=== PATIENT | female | born 1930 | race Caucasian/White ===

== ENCOUNTER → 2016-08-16 | Outpatient (CLI) | payer BC ==
[~2016-08-16] MED LIST: BIMA0.01 OPB; CALCTAB13 PO; CHOL100027 PO; CYCL0.052 OP; ESOM1CAP34 PO; FLX5 PO; GUAISYP4 PO; LDDP5 TD; LPT/20 PO; NRV/5 PO; POLY335040 PO; PRED10TA PO; TMPOPS15 OPB; TRAM-10 PO; TYL325X PO; ZTHM250 PO
[2016-08-16 13:31] LABS: BASO % 0.7 %; BASO ABS # 0.04 K/uL (0-0.2); COMPLETE YES; EOS % 2.4 %; HEMATOCRIT 40.9 % (37-47); LYMPH % 32.4 %; LYMPH ABS # 1.76 K/uL (1.2-3.4); MEAN CELL VOLUME 91.7 fL (80-100); MEAN CORPUSCULAR HEMOGLOBIN 30.7 pg (25-34); MEAN CORPUSCULAR HGB CONC 33.5 g/dl (32-36); MONO % 10.1 %; NEUT % 54.4 %; PLATELET COUNT 187 K/uL (130-400); RED BLOOD COUNT 4.46 M/uL (4.2-5.4); WHITE BLOOD COUNT 5.44 K/uL (4.8-10.8)
[2016-08-16 13:47] LABS: BLOOD UREA NITROGEN 15 mg/dl (7-18); BUN/CREATININE RATIO 19.6 (10-20); CALCIUM 8.7 mg/dl (8.5-10.1); CARBON DIOXIDE 31 mmol/L (21-32); CHLORIDE 106 mmol/L (98-107); CREATININE 0.78 mg/dl (0.60-1.20); GLUCOSE 86 mg/dl (70-99); POTASSIUM 3.8 mmol/L (3.5-5.1); SODIUM 143 mmol/L (136-145)
== END | disposition home or self-care (01) ==
LOC: C.LAB 12:06
PROVIDERS: ATTEND Internal Medicine Geriatric Medicine
DX: I10 Essential (primary) hypertension (principal); M19.90 Unspecified osteoarthritis, unspecified site; M81.0 Age-related osteoporosis without current pathological fracture; M48.00 Spinal stenosis, site unspecified

== ENCOUNTER → 2016-09-24 | Outpatient (CLI) | payer BC ==
[2016-09-24 17:06] LABS: BLOOD UREA NITROGEN 23 mg/dl (7-18); BUN/CREATININE RATIO 19.3 (10-20); CALCIUM 8.8 mg/dl (8.5-10.1); CARBON DIOXIDE 34 mmol/L (21-32); CHLORIDE 104 mmol/L (98-107); GLUCOSE 110 mg/dl (70-99); SODIUM 143 mmol/L (136-145)
== END | disposition home or self-care (01) ==
LOC: C.LAB 15:25
PROVIDERS: ATTEND Internal Medicine Geriatric Medicine
DX: I10 Essential (primary) hypertension (principal)

== ENCOUNTER 2016-10-25 08:57 | Inpatient (IN) | payer BC, OTHER ==
[~2016-10-25] VITALS: Ht 142.2 cm; Wt 67.1 kg
[~2016-10-25 08:57] MED LIST changes: +AZIT-57 PO; -CYCL0.052 OP; -FLX5 PO; -LDDP5 TD; -PRED10TA PO; -TYL325X PO; -ZTHM250 PO
--- NOTE | 2016-10-25 09:28 | EMERGENCY ROOM VISIT NOTE ---
History Report prepared by Kaylyn: Eli Atkinson Under the Supervision of: Dr. Viet Queen M.D. First contact with patient: 09:16 Chief Complaint: NECK PAIN Stated Complaint: NECK PAIN ALL AROUND History of Present Illness The patient is a 86 year old female who presents to the Emergency Room with complaints of worsening neck pain that began 3 days ago. The pain is located on both sides of her neck and the back of her neck. It is significantly worse with movement of her neck. Her discomfort is a 10/10 in severity. She feels that she may have slept in an unusual position the night before her pain began. She does not recall any injuries to her neck. Since her pain began, she has had difficulty swallowing. She is able to drink water, but has not eaten any solids. She has never had similar symptoms in the past. She took 2 Tramadol this morning without relief. She denies extremity pain, abdominal pain, or other complaints. She notes that she has some tingling in her fingers, which is related to medication she is taking for glaucoma and has been going on for some time. Source of History: patient Onset: 3 days ago Position: neck Symptom Intensity: 10/10 Timing: worsening Modifying Factors (Worsening): movement Associated Symptoms: No abdominal pain Review of Systems All systems have been listed, reviewed, and are negative other than those previously mentioned. Please see Additional Medical History Sheet. Past Medical & Surgical Medical Problems: (1) ACUTE CHRONIC CHOLESCYSTITIS (2) BENIGN HYPERTENSION (3) Cholecystectomy (4) Fusion of spine of lumbar region (5) Intractable neck pain Family History Diabetes mellitus Social History Smoking Status: Never Smoker Alcohol Use: none Drug Use: none Marital Status: Housing Status: lives with family Occupation Status: retired Current/Historical Medications Scheduled Atorvastatin (Atorvastatin Calcium), 20 MG PO DAILY Bimatoprost (Lumigan), 1 DROP OPB HS Calcium Carbonate-Vitamin D (Os-Godwin 500 Plus D), 1 TAB PO DAILY Cholecalciferol (Vitamin D 1000 Unit), 1,000 INTER.UNIT PO DAILY Cyclosporine (Ophth) (Restasis), 1 DROP OP BID Esomeprazole Magnesium (Esomeprazole Magnesium), 40 MG PO DAILY Polyethylene (Miralax Powder Packet), 17 GM PO DAILY Timolol Maleate (Timolol 0.5% Oph Soln 15 Ml), 1 DROP OPB BID Tramadol (Ultram), 100 MG PO BID Allergies Coded Allergies: Hydrochlorothiazide (Unverified Allergy, Unknown, UNKNOWN, 10/25/16) Losartan (Unverified Allergy, Unknown, UNKNOWN, 10/25/16) Lansoprazole (Verified Adverse Reaction, Intermediate, NAUSEA, 10/25/16) Physical Exam Vital Signs Date Time Temp Pulse Resp B/P Pulse Ox O2 Delivery O2 Flow Rate FiO2 10/25/16 12:09 88 16 171/83 99 Room Air 10/25/16 10:29 89 16 157/78 95 Room Air 10/25/16 09:00 36.7 92 18 180/93 96 Room Air Physical Exam GENERAL: Patient awake, alert, oriented x 3. Patient follows commands. Patient does not appear toxic. Patient is adequately hydrated and well- nourished. SKIN: No erythema, pallor, cyanosis or rash HEENT: Normal head, pupils equal, reactive to light and accommodation. Ears normal. Oral cavity and posterior pharynx appear normal. Neck: Without adenopathy, no neck vein distention. Marked spasm of the superior aspect of the trapezius bilaterally. Some questionable tenderness of the cervical spine, but no step off noted. LUNGS: Clear to auscultation. No wheezes, no rales, no rhonchi. HEART: No murmurs. No gallops. No rubs ABDOMEN: Soft, nontender. EXTREMITIES: No signs of trauma or infection. NEUROLOGIC: Cranial nerves II-XII within normal limits. No gross motor sensory function deficits. Medical Decision & Procedures ER Provider Diagnostic Interpretation: Radiology results as stated below per my review and radiologist interpretation: CT SCAN OF THE CERVICAL SPINE CLINICAL HISTORY: Neck pain. Torticollis. COMPARISON STUDY: CT scan of the cervical spine dated 05/22/2014. TECHNIQUE: CT scan of the cervical spine is performed from the skull base to the upper thoracic spine. Images are reviewed in the axial, sagittal, and coronal planes. IV contrast was not administered for this examination. CT DOSE: 140.70 mGy.cm FINDINGS: Skeletal structures: The skeletal structures are osteopenic. There is no evidence of fracture or subluxation involving the cervical spine. Vertebral body height and alignment are maintained. There is straightening of the cervical lordosis. The odontoid process and lateral masses are intact. The atlantoaxial articulation is preserved noting productive degenerative change. The spinous processes appear intact. Degenerative endplate sclerosis is seen at C4-C5 and C5-C6. Small anterior osteophytes are present at these levels. Mild uncovertebral and facet arthropathy are noted in the lower cervical region. This causes mild neural foraminal stenosis at the lower cervical levels. Intervertebral discs: There is moderate to advanced degenerative disc space narrowing seen at C4-C5 and C5-C6. Moderate narrowing is seen at C3-C4 and C6-C7. Central canal: Small posterior disc osteophyte complexes at C4-C5, C5-C6, and C6-C7 likely contribute to mild acquired compromise of the central canal. Soft tissues: The prevertebral and paraspinous soft tissues are within normal limits. Calvarium: The visualized calvarium at the skull base appears intact. Brain parenchyma: Partially visualized brain parenchyma the skull base is within normal limits. Sinuses and mastoids: The visualized paranasal sinuses are clear. The mastoid air cells are well pneumatized. Lung apices: Clear as visualized. IMPRESSION: 1. There is no evidence of fracture or subluxation involving the cervical spine. 2. Osteopenia and spondylotic change as above. This is similar to the 2014 examination. Electronically signed by: John Rodriguez M.D. 10/25/2016 11:25 AM Dictated Date/Time: 10/25/2016 11:05 AM Laboratory Results 10/25/16 09:30 Red Blood Count 4.80, Mean Corpuscular Volume 89.2, Mean Corpuscular Hemoglobin 31.7, Mean Corpuscular Hemoglobin Concent 35.5, Mean Platelet Volume 9.5, Neutrophils (%) (Auto) 64.1, Lymphocytes (%) (Auto) 19.9, Monocytes (%) (Auto) 14.4, Eosinophils (%) (Auto) 1.1, Basophils (%) (Auto) 0.3, Neutrophils # (Auto ) 5.77, Lymphocytes # (Auto) 1.79, Monocytes # (Auto) 1.30, Eosinophils # (Auto ) 0.10, Basophils # (Auto) 0.03 10/25/16 09:30 Test 10/25/16 09:30 White Blood Count 9.01 K/uL (4.8-10.8) Red Blood Count 4.80 M/uL (4.2-5.4) Hemoglobin 15.2 g/dL (12.0-16.0) Hematocrit 42.8 % (37-47) Mean Corpuscular Volume 89.2 fL (80-100) Mean Corpuscular Hemoglobin 31.7 pg (25-34) Mean Corpuscular Hemoglobin Concent 35.5 g/dl (32-36) Platelet Count 177 K/uL (130-400) Mean Platelet Volume 9.5 fL (7.4-10.4) Neutrophils (%) (Auto) 64.1 % Lymphocytes (%) (Auto) 19.9 % Monocytes (%) (Auto) 14.4 % Eosinophils (%) (Auto) 1.1 % Basophils (%) (Auto) 0.3 % Neutrophils # (Auto) 5.77 K/uL (1.4-6.5) Lymphocytes # (Auto) 1.79 K/uL (1.2-3.4) Monocytes # (Auto) 1.30 K/uL (0.11-0.59) Eosinophils # (Auto) 0.10 K/uL (0-0.5) Basophils # (Auto) 0.03 K/uL (0-0.2) RDW Standard Deviation 44.3 fL (36.4-46.3) RDW Coefficient of Variation 13.4 % (11.5-14.5) Immature Granulocyte % (Auto) 0.2 % Immature Granulocyte # (Auto) 0.02 K/uL (0.00-0.02) Anion Gap 8.0 mmol/L (3-11) Est Creatinine Clear Calc Drug Dose 27.1 ml/min Estimated GFR () 51.9 Estimated GFR (Non- 44.8 BUN/Creatinine Ratio 19.0 (10-20) Calcium Level 8.7 mg/dl (8.5-10.1) Laboratory results as stated above per my review. Medications Administered Medications (Trade) Dose Ordered Sig/Sarai Route Start Time Stop Time Status Last Admin Dose Admin Morphine Sulfate (MoRPHine SULFATE INJ) 2 mg Q15M PRN IV 10/25/16 09:30 11/08/16 09:29 10/25/16 10:26 2 MG Ondansetron HCl (Zofran Inj) 4 mg PRN PRN IV 10/25/16 09:30 11/24/16 09:29 10/25/16 09:35 4 MG Morphine Sulfate (MoRPHine SULFATE INJ) 4 mg ONE ONCE IV 10/25/16 11:00 10/25/16 11:01 DC 10/25/16 10:51 4 MG Ketorolac Tromethamine (Toradol Inj) 30 mg NOW STAT IV 10/25/16 11:32 10/25/16 11:33 DC 10/25/16 12:02 30 MG Cyclobenzaprine HCl (Flexeril Tab) 10 mg STK-MED ONCE .ROUTE 10/25/16 12:06 10/25/16 12:07 DC 10/25/16 12:02 10 MG ED Course 0916: The patient was evaluated in room A10. A complete history and physical examination was performed. 0930: Ordered Morphine Sulfate 2 mg IV, Zofran Inj 4 mg IV. 1031: Per nursing staff, the patient still has 10/10 pain since being medicated. 1100: Ordered Morphine Sulfate 4 mg IV. 1132: Ordered Toradol Inj 30 mg IV. 1145: Ordered Flexeril Tab 10 mg PO. 1254: Upon reevaluation, the patient is still in 9/10 pain and does not feel comfortable going home. I discussed today's findings with the patient and her family members. They verbalized agreement of the treatment plan. 1305: I spoke with Dr. Connors of the [facility] Hospitalist Service to evaluate the patient for further management. Medical Decision Nurses notes reviewed. Medical history sheet reviewed. Differential diagnosis includes but is not limited to: torticollis, cervical spine fracture, dislocation, subluxation, infection. Blood work and imaging were obtained. Please see above. CT reveals straightening of cervical spine plus significant degenerative changes. No signs of infection. The patient was given multiple doses of pain medication plus Flexeril and Toradol. Patient continued to have 9 out of 10 pain. The patient does not feel like she can or want to go home. I discussed care with the patient, family members and with the hospitalist. Consults Time Called: 0623 Consulting Physician: Dr. Connors - [facility] Hospitalist Returned Call: [phone] I discussed the case with him. The patient will be evaluated for further management. Impression Primary Impression: Intractable pain Additional Impressions: Torticollis Hypokalemia Degenerative joint disease Scribe Attestation The scribe's documentation has been prepared under my direction and personally reviewed by me in its entirety. I confirm that the note above accurately reflects all work, treatment, procedures, and medical decision making performed by me. Departure Information Dispostion Being Evaluated By Hospitalist Referrals Jose Silverman M.D. (PCP) Patient Instructions My [facility] Problem Qualifiers
[2016-10-25] MEDS ORDERED: ONDANSETRON INJ 2 MG/ML 2 ML VIAL IV PRN ×2 (09:30→14:00)
[2016-10-25] MEDS: MoRPHine SULFATE 4 MG/ML 1 ML CARP\\VIAL IV PRN ×4 (09:35→14:27)
[2016-10-25 09:45] LABS: BASO % 0.3 %; BASO ABS # 0.03 K/uL (0-0.2); COMPLETE YES; EOS % 1.1 %; HEMATOCRIT 42.8 % (37-47); IG% 0.2 %; LYMPH % 19.9 %; LYMPH ABS # 1.79 K/uL (1.2-3.4); MEAN CELL VOLUME 89.2 fL (80-100); MEAN CORPUSCULAR HEMOGLOBIN 31.7 pg (25-34); MEAN CORPUSCULAR HGB CONC 35.5 g/dl (32-36); MEAN PLATELET VOLUME 9.5 fL (7.4-10.4); MONO % 14.4 %; NEUT % 64.1 %; PLATELET COUNT 177 K/uL (130-400); WHITE BLOOD COUNT 9.01 K/uL (4.8-10.8)
[2016-10-25] MEDS ORDERED: CYCL0.052 OP (09:57)
[2016-10-25 10:04] LABS: CALCIUM 8.7 mg/dl (8.5-10.1); CREATININE 1.1 mg/dl (0.60-1.20); POTASSIUM 3.1 mmol/L (3.5-5.1)
[2016-10-25] MEDS ORDERED: MoRPHine SULFATE 4 MG/ML 1 ML CARP\\VIAL IV ONE (11:00)
--- NOTE | 2016-10-25 11:27 | DIAGNOSTIC IMAGING REPORT ---
CT SCAN OF THE CERVICAL SPINE CLINICAL HISTORY: Neck pain. Torticollis. COMPARISON STUDY: CT scan of the cervical spine dated 05/22/2014. TECHNIQUE: CT scan of the cervical spine is performed from the skull base to the upper thoracic spine. Images are reviewed in the axial, sagittal, and coronal planes. IV contrast was not administered for this examination. CT DOSE: 140.70 mGy.cm FINDINGS: Skeletal structures: The skeletal structures are osteopenic. There is no evidence of fracture or subluxation involving the cervical spine. Vertebral body height and alignment are maintained. There is straightening of the cervical lordosis. The odontoid process and lateral masses are intact. The atlantoaxial articulation is preserved noting productive degenerative change. The spinous processes appear intact. Degenerative endplate sclerosis is seen at C4-C5 and C5-C6. Small anterior osteophytes are present at these levels. Mild uncovertebral and facet arthropathy are noted in the lower cervical region. This causes mild neural foraminal stenosis at the lower cervical levels. Intervertebral discs: There is moderate to advanced degenerative disc space narrowing seen at C4-C5 and C5-C6. Moderate narrowing is seen at C3-C4 and C6-C7. Central canal: Small posterior disc osteophyte complexes at C4-C5, C5-C6, and C6-C7 likely contribute to mild acquired compromise of the central canal. Soft tissues: The prevertebral and paraspinous soft tissues are within normal limits. Calvarium: The visualized calvarium at the skull base appears intact. Brain parenchyma: Partially visualized brain parenchyma the skull base is within normal limits. Sinuses and mastoids: The visualized paranasal sinuses are clear. The mastoid air cells are well pneumatized. Lung apices: Clear as visualized. IMPRESSION: 1. There is no evidence of fracture or subluxation involving the cervical spine. 2. Osteopenia and spondylotic change as above. This is similar to the 2013 examination. Electronically signed by: John Rodriguez M.D. 10/25/2016 11:25 AM Dictated Date/Time: 10/25/2016 11:05 AM
[2016-10-25] MEDS ORDERED: KETOROLAC TROMETHAMINE 30 MG/ML VIAL IV STA (11:32)
[2016-10-25] MEDS ORDERED: CYCLOBENZAPRINE HCL 5 MG TAB PO ONE (11:45)
[2016-10-25] MEDS ORDERED: CYCLOBENZAPRINE HCL 10 MG TAB ONE (12:06)
--- NOTE | 2016-10-25 13:52 | History and Physical ---
History & Physical Date & Time of Service: Oct 25, 2016 at 13:51 Chief Complaint: Neck Pain All Around Primary Care Physician: Jose Silverman M.D. History of Present Illness Source: patient This is an 86 yo F with PMHx of hypertension, dyslipidemia, spinal stenosis, osteoporosis, left eye glaucoma and GERD who presents to the ER after 3 days of intractable neck pain. The patient reports that it started on Tuesday evening. She cannot remember in initiating event which caused her pain. The pain is present on both sides of her neck, and also has caused her to not be able to fully open her mouth. She has tried heat and Tylenol at home without any adequate relief. The patient has not slept since Tuesday night to pain and inability to lay flat. Here in the ER she was administered Flexeril 10 mg IV, morphine sulfate and Toradol without pain relief. She still rates the pain as a 9/10. She denies any recent medication changes. The patient is from home, lives alone by herself and is able to complete ADLs without difficulty. She is a , and has a daughter with MS who lives approximately 5 miles away from her and helps her with anything she cannot accomplish on her own. The patient does not require assistance with ambulation nor supplemental O2. Past Medical/Surgical History Medical Problems: (1) ACUTE CHRONIC CHOLESCYSTITIS Status: Resolved (2) BENIGN HYPERTENSION Status: Chronic (3) Cholecystectomy Status: Resolved (4) Fusion of spine of lumbar region Status: Resolved Family History Diabetes mellitus Social History Smoking Status: Never Smoker Smokeless Tobacco Use: No Alcohol Use: none Drug Use: none Marital Status: Housing status: lives alone Occupational Status: retired Immunizations History of Influenza Vaccine: Yes History of Tetanus Vaccine?: unknown History of Pneumococcal: Yes History of Hepatitis B Vaccine: Unknown Multi-Drug Resistant Organisms History of MDRO: No Allergies Coded Allergies: Hydrochlorothiazide (Unverified Allergy, Unknown, UNKNOWN, 10/25/16) Losartan (Unverified Allergy, Unknown, UNKNOWN, 10/25/16) Lansoprazole (Verified Adverse Reaction, Intermediate, NAUSEA, 10/25/16) Home Medications Scheduled Atorvastatin (Atorvastatin Calcium), 20 MG PO DAILY Bimatoprost (Lumigan), 1 DROP OPB HS Calcium Carbonate-Vitamin D (Os-Godwin 500 Plus D), 1 TAB PO DAILY Cholecalciferol (Vitamin D 1000 Unit), 1,000 INTER.UNIT PO DAILY Cyclosporine (Ophth) (Restasis), 1 DROP OP BID Esomeprazole Magnesium (Esomeprazole Magnesium), 40 MG PO DAILY Polyethylene (Miralax Powder Packet), 17 GM PO DAILY Timolol Maleate (Timolol 0.5% Oph Soln 15 Ml), 1 DROP OPB BID Tramadol (Ultram), 100 MG PO BID Review of Systems Constitutional: No chills, No fever, No sweats Eyes: + worsening of vision (L eye glaucoma with increased pressure), No diplopia ENT: No hearing loss, No tinnitus, No trouble swallowing Respiratory: No dyspnea on exertion, No shortness of breath Cardiovascular: No chest pain Abdomen: No constipation, No diarrhea, No nausea, No pain, No vomiting Musculoskeletal: No joint pain, No swelling Genitourinary - Female: No dysuria, No urinary frequency Neurologic: No balance problems, No numbness/tingling Psychiatric: No anxiety, No depression symptoms Integumentary: No itch, No rash Physical Exam Vital Signs Date Time Temp Pulse Resp B/P Pulse Ox O2 Delivery O2 Flow Rate FiO2 10/25/16 12:09 88 16 171/83 99 Room Air 10/25/16 10:29 89 16 157/78 95 Room Air 10/25/16 09:00 36.7 92 18 180/93 96 Room Air General Appearance: WD/WN, + mild distress Head: normocephalic, atraumatic, + pertinent finding (+ point tenderness at right occiput. ) Eyes: PERRL, EOMI ENT: hearing grossly normal, pharynx normal, + pertinent finding (Pt unable to fully open mouth. No point tenderness at TM.) Neck: no JVD, + pertinent finding (+ tenderness bilateral neck, + bilateral superior trapezius tenderness ) Respiratory/Chest: chest non-tender, lungs clear, normal breath sounds, no accessory muscle use Cardiovascular: regular rate, rhythm, no JVD, normal peripheral pulses, + systolic murmur Abdomen/GI: normal bowel sounds, non tender, soft Back: no CVA tenderness, normal range of motion, + pertinent finding (Verticle scar over lumbar region) Extremities/Musculoskelatal: no calf tenderness, no pedal edema Neurologic/Psych: alert, normal mood/affect, oriented x 3 Skin: normal color, warm/dry Diagnostics Laboratory Results Results Past 24 Hours Test 10/25/16 09:30 Range/Units White Blood Count 9.01 4.8-10.8 K/uL Red Blood Count 4.80 4.2-5.4 M/uL Hemoglobin 15.2 12.0-16.0 g/dL Hematocrit 42.8 37-47 % Mean Corpuscular Volume 89.2 80-100 fL Mean Corpuscular Hemoglobin 31.7 25-34 pg Mean Corpuscular Hemoglobin Concent 35.5 32-36 g/dl Platelet Count 177 130-400 K/uL Mean Platelet Volume 9.5 7.4-10.4 fL Neutrophils (%) (Auto) 64.1 % Lymphocytes (%) (Auto) 19.9 % Monocytes (%) (Auto) 14.4 % Eosinophils (%) (Auto) 1.1 % Basophils (%) (Auto) 0.3 % Neutrophils # (Auto) 5.77 1.4-6.5 K/uL Lymphocytes # (Auto) 1.79 1.2-3.4 K/uL Monocytes # (Auto) 1.30 0.11-0.59 K/uL Eosinophils # (Auto) 0.10 0-0.5 K/uL Basophils # (Auto) 0.03 0-0.2 K/uL RDW Standard Deviation 44.3 36.4-46.3 fL RDW Coefficient of Variation 13.4 11.5-14.5 % Immature Granulocyte % (Auto) 0.2 % Immature Granulocyte # (Auto) 0.02 0.00-0.02 K/uL Sodium Level 139 136-145 mmol/L Potassium Level 3.1 3.5-5.1 mmol/L Chloride Level 103 98-107 mmol/L Carbon Dioxide Level 28 21-32 mmol/L Anion Gap 8.0 3-11 mmol/L Blood Urea Nitrogen 21 7-18 mg/dl Creatinine 1.10 0.60-1.20 mg/dl Est Creatinine Clear Calc Drug Dose 27.1 ml/min Estimated GFR () 51.9 Estimated GFR (Non- 44.8 BUN/Creatinine Ratio 19.0 10-20 Random Glucose 112 70-99 mg/dl Calcium Level 8.7 8.5-10.1 mg/dl Diagnostic Radiology CT SCAN OF THE CERVICAL SPINE 10/25/16 FINDINGS: Skeletal structures: The skeletal structures are osteopenic. There is no evidence of fracture or subluxation involving the cervical spine. Vertebral body height and alignment are maintained. There is straightening of the cervical lordosis. The odontoid process and lateral masses are intact. The atlantoaxial articulation is preserved noting productive degenerative change. The spinous processes appear intact. Degenerative endplate sclerosis is seen at C4-C5 and C5-C6. Small anterior osteophytes are present at these levels. Mild uncovertebral and facet arthropathy are noted in the lower cervical region. This causes mild neural foraminal stenosis at the lower cervical levels. Intervertebral discs: There is moderate to advanced degenerative disc space narrowing seen at C4-C5 and C5-C6. Moderate narrowing is seen at C3-C4 and C6-C7. Central canal: Small posterior disc osteophyte complexes at C4-C5, C5-C6, and C6-C7 likely contribute to mild acquired compromise of the central canal. Soft tissues: The prevertebral and paraspinous soft tissues are within normal limits. Calvarium: The visualized calvarium at the skull base appears intact. Brain parenchyma: Partially visualized brain parenchyma the skull base is within normal limits. Sinuses and mastoids: The visualized paranasal sinuses are clear. The mastoid air cells are well pneumatized. Lung apices: Clear as visualized. IMPRESSION: 1. There is no evidence of fracture or subluxation involving the cervical spine. 2. Osteopenia and spondylotic change as above. This is similar to the 2014 examination. Impression Assessment and Plan his is an 86 yo F with PMHx of hypertension, dyslipidemia, spinal stenosis, osteoporosis, left eye glaucoma and GERD who presents to the ER after 3 days of intractable neck pain. Bilateral neck muscle spasm - Admit to med/surg - CT c-spine reviewed with moderate to advanced degenerative disc narrowing C4- C5, C5-C6, moderate at C3-C4 and C6 to C7, but no acute fractures or changes. - Point tenderness at the R occiput and over bilateral trapezius - Pain relief with morphine sulfate 2 mg IV q2H prn , Toradol 15 mg Q6H prn, tramadol 50 mg Q12H as per home meds - Start the patient on Solu-Medrol 30 mg Q12H. - the patient reports a remote history of intolerability to prednisone orally, with nausea and vomiting, she denies any anaphylactic reactions this med. - Will allow heat on for 20 min and then off. Pt was using heat continuously for the past day and night. - this likely exacerbated the problem - PT/OT consults - CBC unremarkable Hypokalemia - K = 3.1, will replace with 40 meq PO now - Follow am PRP HTN - Controlled Dyslipidemia - Continue atorvastatin 10 mg daily Left eye glaucoma - Continue [employer] WORK[employer] meds, some not available in house the last pharmacy to convert DVT prophylaxis: Teds, SCDs CODE STATUS: Full code Disposition: Patient from home, lives alone, to assist with discharge planning Level of Care Med/Surg Advanced Directives Existing Advance Directive: No Existing Living Will: No Existing Power of Chief Nurse Anesthetist: No Resuscitation Status FULL RESUSCITATION VTE Prophylaxis VTE Risk Assessment Done? Y/N: Yes Risk Level: Very Low Given or contraindicated: T.E.D. Stockings, SCD's
[2016-10-25] MEDS ORDERED: ACETAMINOPHEN 325 MG TAB PO PRN (14:00)
[2016-10-25] MEDS ORDERED: MoRPHine SULFATE 2 MG/ML CARP IV PRN (14:00)
[2016-10-25 14:17] VITALS: O2SAT 98
[2016-10-25] MEDS ORDERED: MoRPHine SULFATE 2 MG/ML CARP ONE (14:31)
[2016-10-25 14:54] VITALS: BP 133/80; PULSE 82; TEMP 36.8; O2SAT 93
[2016-10-25 15:09] VITALS: BP_SYST 133; PULSE 82; TEMP 36.8; Ht 142.2 cm; Wt 67.1 kg
[2016-10-25] MEDS ORDERED: METHYLPREDNISOLONE IV 30 MG in SYRINGE 0 ML IV SCH (15:30)
[2016-10-25] MEDS ORDERED: POTASSIUM CITRATE 10 MEQ TAB PO ONE (15:30)
[2016-10-25] MEDS: RESTASIS - ORDER AWAITING ACTION SCH (16:00)
[2016-10-25] MEDS: KETOROLAC TROMETHAMINE 15 MG/ML VIAL IV PRN (21:09)
[2016-10-25] MEDS: TIMOLOL MALEATE 0.5% OP SOLN 5 ML BTL OPB SCH (21:09)
[2016-10-25] MEDS: BIMATOPROST 0.01% OP SOLN 2.5 ML BTL OPB SCH (21:09)
[2016-10-25] MEDS: CYCLOBENZAPRINE HCL 5 MG TAB PO SCH (21:10)
[2016-10-25] MEDS: TRAMADOL HCL 50 MG TAB PO SCH (21:11)
[2016-10-25 23:12] VITALS: BP 107/67; PULSE 67; TEMP 36.4; O2SAT 95
[2016-10-26] MEDS: METHYLPREDNISOLONE IV 30 MG in SYRINGE 0 ML IV SCH ×2 (03:49→15:48)
[2016-10-26] MEDS: KETOROLAC TROMETHAMINE 15 MG/ML VIAL IV PRN ×2 (04:19→15:49)
[2016-10-26 06:45] LABS: BASO % 0.2 %; BASO ABS # 0.01 K/uL (0-0.2); COMPLETE YES; IG% 0.2 %; LYMPH % 14.7 %; LYMPH ABS # 0.91 K/uL (1.2-3.4); MEAN CELL VOLUME 88.2 fL (80-100); MEAN CORPUSCULAR HEMOGLOBIN 30.6 pg (25-34); MEAN CORPUSCULAR HGB CONC 34.7 g/dl (32-36); MEAN PLATELET VOLUME 9.9 fL (7.4-10.4); MONO % 3.7 %; NEUT % 81.2 %; PLATELET COUNT 167 K/uL (130-400); RED BLOOD COUNT 4.31 M/uL (4.2-5.4); WHITE BLOOD COUNT 6.18 K/uL (4.8-10.8)
[2016-10-26 07:14] LABS: BUN/CREATININE RATIO 23.1 (10-20); CALCIUM 8.4 mg/dl (8.5-10.1); CREATININE 1.3 mg/dl (0.60-1.20); POTASSIUM 4.2 mmol/L (3.5-5.1)
[2016-10-26 07:20] VITALS: BP 121/77; PULSE 66; TEMP 36.4; O2SAT 93
[2016-10-26] MEDS: RESTASIS - ORDER AWAITING ACTION SCH ×2 (07:51)
[2016-10-26] MEDS: TIMOLOL MALEATE 0.5% OP SOLN 5 ML BTL OPB SCH ×3 (08:57→21:26)
[2016-10-26] MEDS: ATORVASTATIN 20 MG TAB PO SCH (08:58)
[2016-10-26] MEDS: PANTOprazole SOD 40 MG TAB PO SCH (08:58)
[2016-10-26] MEDS: CHOLECALCIFEROL 1000 INTER.UNIT TAB PO SCH (08:58)
[2016-10-26] MEDS: CYCLOBENZAPRINE HCL 5 MG TAB PO SCH ×3 (08:58→21:27)
[2016-10-26] MEDS: POLYETHYLENE (MIRALAX) 17 GM PACK PO SCH (08:59)
[2016-10-26] MEDS: TRAMADOL HCL 50 MG TAB PO SCH ×2 (09:05→21:27)
[2016-10-26] MEDS ORDERED: LIDODERM (LIDOCAINE) PATCH 5% TD ONE (11:00)
--- NOTE | 2016-10-26 11:05 | Hospitalist Progress Note ---
Hospitalist Progress Note Date of Service Oct 26, 2016. Subjective Pt evaluation today including: conversation w/ patient, physical exam, chart review, lab review patient's pain is improving All Other Systems: Reviewed and Negative Medications Medications (Trade) Dose Ordered Sig/Sarai Route Start Time Stop Time Status Last Admin Dose Admin Ketorolac Tromethamine (Toradol Inj) 30 mg NOW STAT IV 10/25/16 11:32 10/25/16 11:33 DC 10/25/16 12:02 30 MG Cyclobenzaprine HCl (Flexeril Tab) 10 mg STK-MED ONCE .ROUTE 10/25/16 12:06 10/25/16 12:07 DC 10/25/16 12:02 10 MG Acetaminophen (Tylenol Tab) 650 mg Q4H PRN PO 10/25/16 14:00 11/24/16 13:59 Future Hold 10/25/16 16:46 650 MG Atorvastatin Calcium (Lipitor Tab) 20 mg DAILY PO 10/26/16 09:00 11/25/16 08:59 10/26/16 08:58 20 MG Cholecalciferol (Vitamin D Tab) 1,000 inter.unit DAILY PO 10/26/16 09:00 11/25/16 08:59 10/26/16 08:58 1,000 INTER.UNIT Polyethylene (Miralax Powder Packet) 17 gm DAILY PO 10/26/16 09:00 11/25/16 08:59 10/26/16 08:59 17 GM Timolol Maleate (Timoptic 0.5% Oph Soln) 1 drops BID OPB 10/25/16 21:00 11/24/16 20:59 10/26/16 08:57 1 DROPS Tramadol HCl (Ultram Tab) 100 mg BID PO 10/25/16 21:00 11/24/16 20:59 10/26/16 09:05 100 MG Bimatoprost (Lumigan 0.01%) 1 drops HS OPB 10/25/16 21:00 11/24/16 20:59 10/25/16 21:09 1 DROPS Pantoprazole Sodium (Protonix Tab) 40 mg QAM PO 10/26/16 09:00 11/25/16 08:59 10/26/16 08:58 40 MG Cyclobenzaprine HCl (Flexeril Tab) 5 mg TID PO 10/25/16 21:00 5/17/17 20:59 10/26/16 08:58 5 MG Ketorolac Tromethamine 15 mg 15 mg Q6H PRN IV 10/25/16 18:00 10/30/16 17:59 10/26/16 04:19 15 MG Methylprednisolone Sodium Succinate 30 mg/Syringe 0.48 ml @ 1.5 mls/min 1530 IV 10/25/16 15:30 10/25/16 15:31 DC 10/25/16 16:45 1.5 MLS/MIN Methylprednisolone Sodium Succinate/ Syringe (Solu-Medrol IV/ Syringe) 0.48 ml @ 1.5 mls/min Q12H IV 10/26/16 04:00 11/25/16 03:59 10/26/16 03:49 1.5 MLS/MIN Potassium Citrate (Urocit-K Tab) 40 meq 1530 ONCE PO 10/25/16 15:30 10/25/16 15:31 DC 10/25/16 16:45 40 MEQ Objective Vital Signs Date Time Temp Pulse Resp B/P Pulse Ox O2 Delivery O2 Flow Rate FiO2 10/26/16 07:45 Room Air 10/26/16 07:20 36.4 66 21 121/77 93 Room Air 10/26/16 00:10 Room Air 10/25/16 23:12 36.4 67 14 107/67 95 Room Air 10/25/16 16:30 Room Air 10/25/16 15:09 36.8 82 18 133/ Room Air 10/25/16 14:54 36.8 82 18 133/80 93 Room Air 10/25/16 14:17 88 18 132/73 98 Room Air 10/25/16 12:09 88 16 171/83 99 Room Air Physical Exam General Appearance: no apparent distress Eyes: normal inspection ENT: hearing grossly normal Neck: trachea midline Respiratory/Chest: lungs clear Cardiovascular: regular rate, rhythm Abdomen: normal bowel sounds, non tender Extremities: normal inspection Laboratory Results Last 24 Hours Test 10/26/16 06:26 White Blood Count 6.18 K/uL Red Blood Count 4.31 M/uL Hemoglobin 13.2 g/dL Hematocrit 38.0 % Mean Corpuscular Volume 88.2 fL Mean Corpuscular Hemoglobin 30.6 pg Mean Corpuscular Hemoglobin Concent 34.7 g/dl Platelet Count 167 K/uL Mean Platelet Volume 9.9 fL Neutrophils (%) (Auto) 81.2 % Lymphocytes (%) (Auto) 14.7 % Monocytes (%) (Auto) 3.7 % Eosinophils (%) (Auto) 0.0 % Basophils (%) (Auto) 0.2 % Neutrophils # (Auto) 5.02 K/uL Lymphocytes # (Auto) 0.91 K/uL Monocytes # (Auto) 0.23 K/uL Eosinophils # (Auto) 0.00 K/uL Basophils # (Auto) 0.01 K/uL RDW Standard Deviation 42.7 fL RDW Coefficient of Variation 13.1 % Immature Granulocyte % (Auto) 0.2 % Immature Granulocyte # (Auto) 0.01 K/uL Sodium Level 138 mmol/L Potassium Level 4.2 mmol/L Chloride Level 105 mmol/L Carbon Dioxide Level 25 mmol/L Anion Gap 8.0 mmol/L Blood Urea Nitrogen 30 mg/dl Creatinine 1.30 mg/dl Est Creatinine Clear Calc Drug Dose 22.9 ml/min Estimated GFR () 42.4 Estimated GFR (Non- 36.6 BUN/Creatinine Ratio 23.1 Random Glucose 133 mg/dl Calcium Level 8.4 mg/dl Assessment and Plan (1) Intractable pain Assessment & Plan: will add iv tylenol and lidocaine patch to current meds (2) Degenerative joint disease (3) Intractable neck pain Assessment & Plan: see above (4) Advance care planning Assessment & Plan: discussed in detail with the patient the need for a will, living will and POA for daughter.
[2016-10-26] MEDS ORDERED: ENOXAPARIN 30 MG/0.3 ML SYR SQ ONE (12:00)
[2016-10-26 12:44] LABS: PARTIAL THROMBOPLASTIN RATIO 1.1; PROTHROMBIN TIME (PATIENT) 10.7 SECONDS (9.0-12.0)
[2016-10-26] MEDS: ACETAMINOPHEN IV 1,000 MG in EMPTY BAG 0 ML IV SCH ×2 (14:08→21:27)
[2016-10-26 15:17] VITALS: BP 144/84; PULSE 85; TEMP 36.8; O2SAT 94
[2016-10-26] MEDS: CycloSPORINE 0.05% 0.4 ML 30 UDV/BOX OP SCH ×2 (21:26→21:31)
[2016-10-26] MEDS: BIMATOPROST 0.01% OP SOLN 2.5 ML BTL OPB SCH (21:26)
[2016-10-26 23:26] VITALS: BP 117/73; PULSE 68; TEMP 36.8; O2SAT 95
[2016-10-27] MEDS: METHYLPREDNISOLONE IV 30 MG in SYRINGE 0 ML IV SCH ×2 (03:30→17:30)
[2016-10-27] MEDS: ACETAMINOPHEN IV 1,000 MG in EMPTY BAG 0 ML IV SCH ×3 (05:31→21:29)
[2016-10-27 06:15] LABS: COMPLETE YES; HEMATOCRIT 38.6 % (37-47); IG% 0.2 %; LYMPH % 11.5 %; LYMPH ABS # 1.39 K/uL (1.2-3.4); MEAN CELL VOLUME 88.9 fL (80-100); MEAN CORPUSCULAR HEMOGLOBIN 31.1 pg (25-34); MEAN PLATELET VOLUME 9.9 fL (7.4-10.4); MONO % 3.1 %; NEUT % 85.2 %; PLATELET COUNT 209 K/uL (130-400); RED BLOOD COUNT 4.34 M/uL (4.2-5.4); WHITE BLOOD COUNT 12.11 K/uL (4.8-10.8)
[2016-10-27 06:50] LABS: BUN/CREATININE RATIO 27.4 (10-20); CALCIUM 8.5 mg/dl (8.5-10.1); CREATININE 1.6 mg/dl (0.60-1.20); POTASSIUM 4.1 mmol/L (3.5-5.1)
[2016-10-27 08:00] VITALS: BP 131/77; PULSE 84; TEMP 36.1; O2SAT 95
[2016-10-27] MEDS: TRAMADOL HCL 50 MG TAB PO SCH ×2 (09:16→21:24)
[2016-10-27] MEDS: TIMOLOL MALEATE 0.5% OP SOLN 5 ML BTL OPB SCH ×2 (09:16→21:23)
[2016-10-27] MEDS: CycloSPORINE 0.05% 0.4 ML 30 UDV/BOX OP SCH ×2 (09:16→21:22)
[2016-10-27] MEDS: ATORVASTATIN 20 MG TAB PO SCH (09:17)
[2016-10-27] MEDS: PANTOprazole SOD 40 MG TAB PO SCH (09:17)
[2016-10-27] MEDS: CHOLECALCIFEROL 1000 INTER.UNIT TAB PO SCH (09:17)
[2016-10-27] MEDS: POLYETHYLENE (MIRALAX) 17 GM PACK PO SCH (09:17)
[2016-10-27] MEDS: CYCLOBENZAPRINE HCL 5 MG TAB PO SCH ×3 (09:17→21:23)
[2016-10-27] MEDS: LIDODERM (LIDOCAINE) PATCH 5% TD SCH (09:18)
[2016-10-27] MEDS: ENOXAPARIN 30 MG/0.3 ML SYR SQ SCH (09:18)
--- NOTE | 2016-10-27 10:26 | Clinical Documentation Query ---
VALERIA Curry : CLINICAL DOCUMENTATION QUERY Patient is an 86 year old female admitted for treatment and evaluation of bilateral neck muscle spasm. Admission BUN and creatinine were 21 mg/dl and 1.10 mg/dl. No documented history of chronic kidney disease. Repeat values this a.m. (10/27) are 44 mg/dl and 1.6 mg/dl. Per RIFLE and TRISH criteria, consider the following clinical diagnosis as appropriate. Thank you. In your clinical opinion is this patient being managed for: ( ) Acute kidney failure ( ) Other explanation of clinical findings (Please Explain) ( ) Unable to determine (Please Define) ( ) Need to Discuss ( ) Not Agree The medical record reflects the following clinical findings, treatment, and risk factors. Clinical Indicators:Admission BUN and creatinine were 21 mg/dl and 1.10 mg/dl. No documented history of chronic kidney disease. Repeat values this a.m. (10/27) are 44 mg/dl and 1.6 mg/dl Treatment:Serial chemistries Risk Factors: Age, medications Please clarify and document your clinical opinion in the progress notes and discharge summary. Terms such as "probable", "suspected", "likely", "questionable", "possible", or "still to be ruled out" are acceptable. IF IN AGREEMENT, YOU MUST DOCUMENT ABOVE DIAGNOSTIC STATEMENT IN DAILY PROGRESS NOTES AND DISCHARGE SUMMARY. This document is not part of the patient's record. Thank You, Valeria Dickerson, LARISSA [phone]
[2016-10-27 15:25] VITALS: BP 146/83; PULSE 83; TEMP 36.4; O2SAT 97
--- NOTE | 2016-10-27 20:09 | Hospitalist Progress Note ---
Hospitalist Progress Note Date of Service Oct 27, 2016. Subjective Pt evaluation today including: conversation w/ patient, physical exam, chart review neck pain greatly improved able to ambulate All Other Systems: Reviewed and Negative Objective Vital Signs Date Time Temp Pulse Resp B/P Pulse Ox O2 Delivery O2 Flow Rate FiO2 10/27/16 15:25 36.4 83 16 146/83 97 Room Air 10/27/16 08:00 36.1 84 18 131/77 95 Room Air 10/27/16 07:15 Room Air 10/26/16 23:30 Room Air 10/26/16 23:26 36.8 68 16 117/73 95 Physical Exam General Appearance: no apparent distress Eyes: normal inspection ENT: hearing grossly normal Neck: supple, trachea midline Respiratory/Chest: lungs clear Cardiovascular: regular rate, rhythm, no edema Abdomen: normal bowel sounds Extremities: normal range of motion Laboratory Results Last 24 Hours Test 10/27/16 05:43 White Blood Count 12.11 K/uL Red Blood Count 4.34 M/uL Hemoglobin 13.5 g/dL Hematocrit 38.6 % Mean Corpuscular Volume 88.9 fL Mean Corpuscular Hemoglobin 31.1 pg Mean Corpuscular Hemoglobin Concent 35.0 g/dl Platelet Count 209 K/uL Mean Platelet Volume 9.9 fL Neutrophils (%) (Auto) 85.2 % Lymphocytes (%) (Auto) 11.5 % Monocytes (%) (Auto) 3.1 % Eosinophils (%) (Auto) 0.0 % Basophils (%) (Auto) 0.0 % Neutrophils # (Auto) 10.31 K/uL Lymphocytes # (Auto) 1.39 K/uL Monocytes # (Auto) 0.38 K/uL Eosinophils # (Auto) 0.00 K/uL Basophils # (Auto) 0.00 K/uL RDW Standard Deviation 42.6 fL RDW Coefficient of Variation 13.0 % Immature Granulocyte % (Auto) 0.2 % Immature Granulocyte # (Auto) 0.03 K/uL Sodium Level 138 mmol/L Potassium Level 4.1 mmol/L Chloride Level 104 mmol/L Carbon Dioxide Level 25 mmol/L Anion Gap 9.0 mmol/L Blood Urea Nitrogen 44 mg/dl Creatinine 1.60 mg/dl Est Creatinine Clear Calc Drug Dose 18.6 ml/min Estimated GFR () 33.0 Estimated GFR (Non- 28.5 BUN/Creatinine Ratio 27.4 Random Glucose 126 mg/dl Calcium Level 8.5 mg/dl Assessment and Plan (1) Intractable pain (2) Degenerative joint disease (3) Intractable neck pain Assessment & Plan: improved with iv tylenol and lidocaine patch will change tomorrow to po tylenol with lidocaine patch. (4) Advance care planning
[2016-10-27] MEDS: BIMATOPROST 0.01% OP SOLN 2.5 ML BTL OPB SCH (21:23)
[2016-10-27 23:25] VITALS: BP 139/82; PULSE 86; TEMP 36.7; O2SAT 97
[2016-10-28] MEDS: METHYLPREDNISOLONE IV 30 MG in SYRINGE 0 ML IV SCH (04:02)
[2016-10-28] MEDS: ACETAMINOPHEN IV 1,000 MG in EMPTY BAG 0 ML IV SCH ×3 (05:38→21:06)
[2016-10-28 06:46] LABS: COMPLETE YES; HEMATOCRIT 40.6 % (37-47); IG% 0.2 %; LYMPH % 12.1 %; LYMPH ABS # 1.36 K/uL (1.2-3.4); MEAN CELL VOLUME 89.6 fL (80-100); MEAN CORPUSCULAR HEMOGLOBIN 31.1 pg (25-34); MEAN CORPUSCULAR HGB CONC 34.7 g/dl (32-36); MEAN PLATELET VOLUME 9.4 fL (7.4-10.4); MONO % 3.9 %; NEUT % 83.8 %; PLATELET COUNT 254 K/uL (130-400); RED BLOOD COUNT 4.53 M/uL (4.2-5.4); WHITE BLOOD COUNT 11.24 K/uL (4.8-10.8)
[2016-10-28 07:26] VITALS: BP_SYST 168; BP_SYST 179; BP_DIAS 116; BP_DIAS 139; PULSE 95; TEMP 36.9; O2SAT 96
[2016-10-28] MEDS ORDERED: NURSING VERBAL MED ORDER ONE (08:15)
[2016-10-28] MEDS ORDERED: NURSING DECISION MEDICATION ORDER SCH (08:15)
[2016-10-28] MEDS: TIMOLOL MALEATE 0.5% OP SOLN 5 ML BTL OPB SCH ×2 (09:27→21:06)
[2016-10-28] MEDS: CycloSPORINE 0.05% 0.4 ML 30 UDV/BOX OP SCH ×2 (09:27→21:06)
[2016-10-28] MEDS: LIDODERM (LIDOCAINE) PATCH 5% TD SCH (09:28)
[2016-10-28] MEDS: CYCLOBENZAPRINE HCL 5 MG TAB PO SCH ×3 (09:28→21:03)
[2016-10-28] MEDS: TRAMADOL HCL 50 MG TAB PO SCH ×2 (09:28→21:02)
[2016-10-28] MEDS: ENOXAPARIN 30 MG/0.3 ML SYR SQ SCH (09:28)
[2016-10-28] MEDS: ATORVASTATIN 20 MG TAB PO SCH (09:29)
[2016-10-28] MEDS: POLYETHYLENE (MIRALAX) 17 GM PACK PO SCH (09:29)
[2016-10-28] MEDS: LABETALOL HCL 100 MG TAB PO SCH ×2 (09:29→21:04)
[2016-10-28] MEDS: CHOLECALCIFEROL 1000 INTER.UNIT TAB PO SCH (09:30)
[2016-10-28] MEDS: PANTOprazole SOD 40 MG TAB PO SCH (09:30)
[2016-10-28 10:49] VITALS: BP 160/93
[2016-10-28] MEDS: SODIUM CHLORIDE 0.45% 1000ML 1,000 ML IV SCH (14:39)
[2016-10-28 15:25] VITALS: BP 131/80; PULSE 85; TEMP 36.8; O2SAT 92
[2016-10-28 16:28] LABS: HEMATOCRIT 39.9 % (37-47); MEAN CELL VOLUME 89.9 fL (80-100); MEAN CORPUSCULAR HEMOGLOBIN 30.6 pg (25-34); MEAN CORPUSCULAR HGB CONC 34.1 g/dl (32-36); MEAN PLATELET VOLUME 9.1 fL (7.4-10.4); PLATELET COUNT 226 K/uL (130-400); RED BLOOD COUNT 4.44 M/uL (4.2-5.4); WHITE BLOOD COUNT 9.78 K/uL (4.8-10.8)
[2016-10-28 16:52] LABS: BUN/CREATININE RATIO 35.3 (10-20); CALCIUM 8.4 mg/dl (8.5-10.1); CREATININE 1.3 mg/dl (0.60-1.20)
--- NOTE | 2016-10-28 17:50 | Hospitalist Progress Note ---
Hospitalist Progress Note Date of Service Oct 28, 2016. Subjective Pt evaluation today including: conversation w/ patient patient with no complaints to me however was telling her grand daughter and the nurse about the little men in her room. She is visually hallucinating as a result of steroid therapy Medications Medications (Trade) Dose Ordered Sig/Sarai Route Start Time Stop Time Status Last Admin Dose Admin Prednisone (PredniSONE TAB) 50 mg DAILY PO 10/28/16 09:00 11/27/16 08:59 10/28/16 09:30 50 MG Labetalol HCl 100 mg 100 mg BID PO 10/28/16 09:00 11/27/16 08:59 10/28/16 09:29 100 MG Sodium Chloride (1/2 Nss 1000ml) 1,000 ml @ 75 mls/hr [id number] IV 10/28/16 14:45 11/27/16 14:44 10/28/16 14:39 75 MLS/HR Last Resulted CBC 10/28/16 16:15 Last Resulted BMP 10/28/16 15:15 Objective Vital Signs Date Time Temp Pulse Resp B/P Pulse Ox O2 Delivery O2 Flow Rate FiO2 10/28/16 15:25 36.8 85 16 131/80 92 Room Air 10/28/16 10:49 160/93 10/28/16 07:26 36.9 95 18 168/139 96 Room Air 179/116 10/28/16 07:15 Room Air 10/27/16 23:25 36.7 86 16 139/82 97 Room Air 10/27/16 19:45 Room Air Physical Exam General Appearance: no apparent distress Eyes: normal inspection ENT: hearing grossly normal Neck: trachea midline Respiratory/Chest: lungs clear Cardiovascular: regular rate, rhythm, no edema Abdomen: non tender Extremities: normal range of motion Neurologic/Psychiatric: alert Skin: no rash Laboratory Results Last 24 Hours Test 10/28/16 06:05 10/28/16 15:15 10/28/16 16:15 White Blood Count 11.24 K/uL 9.78 K/uL Red Blood Count 4.53 M/uL 4.44 M/uL Hemoglobin 14.1 g/dL 13.6 g/dL Hematocrit 40.6 % 39.9 % Mean Corpuscular Volume 89.6 fL 89.9 fL Mean Corpuscular Hemoglobin 31.1 pg 30.6 pg Mean Corpuscular Hemoglobin Concent 34.7 g/dl 34.1 g/dl Platelet Count 254 K/uL 226 K/uL Mean Platelet Volume 9.4 fL 9.1 fL Neutrophils (%) (Auto) 83.8 % Lymphocytes (%) (Auto) 12.1 % Monocytes (%) (Auto) 3.9 % Eosinophils (%) (Auto) 0.0 % Basophils (%) (Auto) 0.0 % Neutrophils # (Auto) 9.42 K/uL Lymphocytes # (Auto) 1.36 K/uL Monocytes # (Auto) 0.44 K/uL Eosinophils # (Auto) 0.00 K/uL Basophils # (Auto) 0.00 K/uL RDW Standard Deviation 44.1 fL 44.3 fL RDW Coefficient of Variation 13.4 % 13.4 % Immature Granulocyte % (Auto) 0.2 % Immature Granulocyte # (Auto) 0.02 K/uL Sodium Level 143 mmol/L Potassium Level 4.0 mmol/L Chloride Level 111 mmol/L Carbon Dioxide Level 25 mmol/L Anion Gap 7.0 mmol/L Blood Urea Nitrogen 46 mg/dl Creatinine 1.30 mg/dl Est Creatinine Clear Calc Drug Dose 22.9 ml/min Estimated GFR () 42.4 Estimated GFR (Non- 36.6 BUN/Creatinine Ratio 35.3 Random Glucose 151 mg/dl Calcium Level 8.4 mg/dl Assessment and Plan (1) Delirium Assessment & Plan: DC iv steroids and taper oral pain is well controlled (2) Intractable pain (3) Degenerative joint disease (4) Intractable neck pain Assessment & Plan: prednisone taper iv tylenol can discharge once mental status improves (5) Advance care planning
[2016-10-28 21:00] VITALS: BP 159/86; PULSE 78
[2016-10-28] MEDS: BIMATOPROST 0.01% OP SOLN 2.5 ML BTL OPB SCH (21:06)
[2016-10-28 23:35] VITALS: BP 137/83; PULSE 70; TEMP 36.2; O2SAT 95
[2016-10-29] MEDS: SODIUM CHLORIDE 0.45% 1000ML 1,000 ML IV SCH (03:51)
[2016-10-29] MEDS: ACETAMINOPHEN IV 1,000 MG in EMPTY BAG 0 ML IV SCH (05:36)
[2016-10-29 07:28] VITALS: BP 130/77; PULSE 72; TEMP 36.9; O2SAT 96
[2016-10-29] MEDS: POLYETHYLENE (MIRALAX) 17 GM PACK PO SCH (09:00)
[2016-10-29] MEDS: LIDODERM (LIDOCAINE) PATCH 5% TD SCH (09:04)
[2016-10-29] MEDS: ENOXAPARIN 30 MG/0.3 ML SYR SQ SCH (09:04)
[2016-10-29] MEDS: CYCLOBENZAPRINE HCL 5 MG TAB PO SCH (09:04)
[2016-10-29] MEDS: PANTOprazole SOD 40 MG TAB PO SCH (09:04)
[2016-10-29] MEDS: ATORVASTATIN 20 MG TAB PO SCH (09:04)
[2016-10-29] MEDS: LABETALOL HCL 100 MG TAB PO SCH (09:05)
[2016-10-29] MEDS: CHOLECALCIFEROL 1000 INTER.UNIT TAB PO SCH (09:06)
[2016-10-29] MEDS: CycloSPORINE 0.05% 0.4 ML 30 UDV/BOX OP SCH (09:06)
[2016-10-29] MEDS: TIMOLOL MALEATE 0.5% OP SOLN 5 ML BTL OPB SCH (09:06)
[2016-10-29 09:09] LABS: HEMATOCRIT 39.4 % (37-47); MEAN CELL VOLUME 90.2 fL (80-100); MEAN CORPUSCULAR HEMOGLOBIN 30.2 pg (25-34); MEAN CORPUSCULAR HGB CONC 33.5 g/dl (32-36); MEAN PLATELET VOLUME 9.3 fL (7.4-10.4); PLATELET COUNT 225 K/uL (130-400); RED BLOOD COUNT 4.37 M/uL (4.2-5.4); WHITE BLOOD COUNT 10.47 K/uL (4.8-10.8)
[2016-10-29] MEDS: TRAMADOL HCL 50 MG TAB PO SCH (09:12)
[2016-10-29] MEDS ORDERED: FLX5 PO ×2 (12:45→16:47)
[2016-10-29] MEDS ORDERED: CYCLOBENZAPRINE HCL 5 MG TAB PO PRN (13:15)
--- NOTE | 2016-10-29 13:17 | Discharge Instructions ---
Discharge Instructions Date of Service Oct 29, 2016. Admission Reason for Admission: Intractable Neck Pain Discharge Discharge Diagnosis / Problem: intractable back pain Discharge Goals Goal(s): Decrease discomfort, Improve function Activity Recommendations Activity Limitations: per Instructions/Follow-up section Lifting Limitations: no more than 5 pounds Exercise/Sports Limitations: gradually increase as tolerated . Instructions / Follow-Up Instructions / Follow-Up Primary care doctor 1 week Current Hospital Diet Patient's current hospital diet: Regular Diet Discharge Diet Recommended Diet: AHA Diet (Heart Healthy) Pending Studies Studies pending at discharge: no Medical Emergencies . Who to Call and When: Medical Emergencies: If at any time you feel your situation is an emergency, please call 911 immediately. . Non-Emergent Contact Non-Emergency issues call your: Primary Care Provider . Past History Medical & Surgical History: (1) Delirium (2) Degenerative joint disease (3) Intractable pain . "Provider Documentation" section prepared by Raul Hernandez. . VTE Core Measure Inpt VTE Proph given/why not?: Maye Vinson, SCD's
[2016-10-29] MEDS ORDERED: ACETAMINOPHEN 500 MG TAB PO SCH (14:00)
[2016-10-29 15:51] VITALS: BP 130/77; PULSE 72; TEMP 36.9; O2SAT 96
[2016-10-29] MEDS ORDERED: TYL325X PO (16:58)
[2016-10-29] MEDS ORDERED: LDDP5 TD (17:03)
[2016-10-29] MEDS ORDERED: PRED10TA PO (17:03)
--- NOTE | 2016-11-02 18:14 | DISCHARGE SUMMARY ---
Please see dictated H and P for full details of her presentation. The patient is an 86-year-old with history of hypertension, dyslipidemia, spinal stenosis, osteoporosis, left eye glaucoma and gastroesophageal reflux disease, who presented with a 3-day history of intractable neck pain. She was treated with Flexeril, morphine and Toradol without relief in the Emergency Room and she was referred for admission. CAT scan showed no evidence of fracture or subluxation involving the cervical spine, osteopenia and spondylitic changes which are similar to an exam in 2014. The patient was started on Solu-Medrol q. 12 and lidocaine patch was added. She had some steroid-induced delirium which improved with changing her from IV steroids to oral. Her pain responded well to IV Tylenol and lidocaine patch and she was deemed stable for discharge on 10/29/2016 and she had an otherwise unremarkable hospital stay. Time spent in review of the chart, discussion with the patient on the date of discharge 31 minutes. JADEN
== END 2016-10-29 17:15 | disposition home health service (06) | DRG 556 ==
LOC: ENRESERVTM → ENRESERVDT → CANRESERV → ENRESERV → C.EDB 08:58 → C.MSN 14:03
PROVIDERS: ADMIT Internal Medicine; ATTEND Internal Medicine
DX: M62.838 Other muscle spasm (principal); I10 Essential (primary) hypertension; E78.5 Hyperlipidemia, unspecified; M81.0 Age-related osteoporosis without current pathological fracture; H40.9 Unspecified glaucoma; K21.9 Gastro-esophageal reflux disease without esophagitis; Z90.49 Acquired absence of other specified parts of digestive tract; Z98.1 Arthrodesis status; Z83.3 Family history of diabetes mellitus; Z88.8 Allergy status to other drugs, medicaments and biological substances; Z79.899 Other long term (current) drug therapy; M50.30 Other cervical disc degeneration, unspecified cervical region; E87.6 Hypokalemia; R41.0 Disorientation, unspecified

== ENCOUNTER → 2016-12-28 | Outpatient (CLI) | payer BC ==
[~2016-12-28] MED LIST changes: -AZIT-57 PO; +CYCL0.052 OP; +FLX5 PO; -GUAISYP4 PO; +LDDP5 TD; -NRV/5 PO; +TYL325X PO
--- NOTE | 2016-12-28 14:14 | MAMMOGRAPHY REPORT ---
BILATERAL DIGITAL SCREENING MAMMOGRAM WITH CAD: 12/28/2016 CLINICAL HISTORY: Routine screening. Patient has no complaints. TECHNIQUE: Bilateral CC and MLO views were obtained. Current study was also evaluated with a Compute r Aided Detection (CAD) system. COMPARISON: Comparison is made to exams dated: 12/26/2015 mammogram, 12/24/2014 mammogram, 12/20/2013 m ammogram, 12/21/2012 mammogram, 12/19/2012 mammogram, and 11/30/2011 mammogram - [facility] enter. BREAST COMPOSITION: There are scattered areas of fibroglandular density in both breasts. FINDINGS: The parenchymal pattern is similar to prior mammograms. There are scattered benign-appear ing calcifications in both breasts. No developing mass, architectural distortion or cluster of suspi cious microcalcifications is seen. IMPRESSION: ACR BI-RADS CATEGORY 2: BENIGN There is no mammographic evidence of malignancy. A 1 year screening mammogram is recommended. The pa tient will receive written notification of the results. Approximately 10% of breast cancers are not detected with mammography. A negative mammographic report should not delay biopsy if a clinically suggestive mass is present. Sue Hinkle M.D. ay/:12/28/2016 13:26:21 In Room Dining Server: Nabila CHARLES(R)(M), [facility] letter sent: Normal 1/2 BI-RADS Code: ACR BI-RADS Category 2: Benign
== END | disposition home or self-care (01) ==
LOC: C.MAMM 10:53
PROVIDERS: ATTEND Internal Medicine Geriatric Medicine
DX: Z12.31 Encounter for screening mammogram for malignant neoplasm of breast (principal)

== ENCOUNTER → 2017-04-07 | Outpatient (CLI) | payer BC ==
[2017-04-07 17:27] LABS: BASO % 0.8 %; BASO ABS # 0.04 K/uL (0-0.2); COMPLETE YES; EOS % 4.3 %; HEMATOCRIT 41.3 % (37-47); IG% 0.2 %; LYMPH ABS # 2.04 K/uL (1.2-3.4); MEAN CELL VOLUME 93.4 fL (80-100); MEAN CORPUSCULAR HEMOGLOBIN 30.3 pg (25-34); MEAN CORPUSCULAR HGB CONC 32.4 g/dl (32-36); MEAN PLATELET VOLUME 10.3 fL (7.4-10.4); MONO % 12.4 %; NEUT % 42.3 %; PLATELET COUNT 172 K/uL (130-400); RED BLOOD COUNT 4.42 M/uL (4.2-5.4)
[2017-04-07 17:31] LABS: ALT/SGPT 15 U/L (12-78); AST/SGOT 16 U/L (15-37); BLOOD UREA NITROGEN 24 mg/dl (7-18); CALCIUM 8.4 mg/dl (8.5-10.1); CARBON DIOXIDE 27 mmol/L (21-32); CHLORIDE 108 mmol/L (98-107); CREATININE 0.82 mg/dl (0.60-1.20); GLUCOSE 92 mg/dl (70-99); SODIUM 141 mmol/L (136-145)
[2017-04-07 17:41] LABS: LYME DISEASE AB IGG NEG (NEG); LYME DISEASE AB IGM NEG (NEG)
[2017-04-07 17:42] LABS: ALKALINE PHOSPHATASE 100 U/L (45-117); CHOLESTEROL 109 mg/dl (0-200); CHOLESTEROL/HDL RATIO 2.3; HDL CHOLESTEROL 48 mg/dl; LDL CHOLESTEROL CALCULATED 44 mg/dl; TRIGLYCERIDES 83 mg/dl (0-150); VERY LOW DENSITY LIPOPROT CALC 17 mg/dl
== END | disposition home or self-care (01) ==
LOC: C.LABBC 15:01
PROVIDERS: ATTEND Internal Medicine Geriatric Medicine
DX: I10 Essential (primary) hypertension (principal); M81.0 Age-related osteoporosis without current pathological fracture; E78.5 Hyperlipidemia, unspecified; R61 Generalized hyperhidrosis

== ENCOUNTER → 2017-08-02 | Outpatient (CLI) | payer BC ==
[~2017-08-02] MED LIST changes: -LPT/20 PO; +LPT20 PO
== END | disposition home or self-care (01) ==
LOC: C.MAMM 10:19
PROVIDERS: ATTEND Physician Assistant Medical
DX: M81.0 Age-related osteoporosis without current pathological fracture (principal)

== ENCOUNTER → 2017-09-12 | Outpatient (CLI) | payer BC ==
[2017-09-12 13:35] LABS: HEMATOCRIT 41.2 % (37-47); HEMOGLOBIN 13.7 g/dL (12.0-16.0); MEAN CELL VOLUME 98.3 fL (80-100); MEAN CORPUSCULAR HEMOGLOBIN 32.7 pg (25-34); MEAN CORPUSCULAR HGB CONC 33.3 g/dl (32-36); MEAN PLATELET VOLUME 9.7 fL (7.4-10.4); PLATELET COUNT 230 K/uL (130-400); RED CELL DISTRIBUTION WIDTH CV 13.5 % (11.5-14.5); RED CELL DISTRIBUTION WIDTH SD 48.5 fL (36.4-46.3)
[2017-09-12 14:54] LABS: ALBUMIN 3.3 gm/dl (3.4-5.0); BLOOD UREA NITROGEN 18 mg/dl (7-18); CALCIUM 8.8 mg/dl (8.5-10.1); CARBON DIOXIDE 31 mmol/L (21-32); CREATININE 0.93 mg/dl (0.60-1.20); GLUCOSE 82 mg/dl (70-99); POTASSIUM 3.8 mmol/L (3.5-5.1); SODIUM 141 mmol/L (136-145)
[2017-09-12 14:57] LABS: ALKALINE PHOSPHATASE 109 U/L (45-117); ALT/SGPT 15 U/L (12-78); AST/SGOT 18 U/L (15-37); TOTAL PROTEIN 6.8 gm/dl (6.4-8.2)
== END | disposition home or self-care (01) ==
LOC: C.LABBC 09:45
PROVIDERS: ATTEND Family Medicine Adult Medicine
DX: Z01.818 Encounter for other preprocedural examination (principal)